=== PATIENT | female | born 1995 | race African-American/Black ===

== ENCOUNTER 2023-11-15 22:25 | Emergency (ER) | payer OTHER ==
[~2023-11-15] VITALS: Ht 157.5 cm; Wt 78.0 kg
[2023-11-15 22:33] VITALS: BP 146/95; PULSE 80; RESP 16; TEMP 96.7; O2SAT 100
[2023-11-15 23:01] LABS: APPEARANCE,URINE CLEAR (CLEAR); BILIRUBIN,URINE 1+ (NEGATIVE); BLOOD, URINE NEGATIVE (NEGATIVE); COLOR,URINE YELLOW (YELLOW); LEUKOCYTE ESTERASE ,URINE TRACE (NEGATIVE); NITRITE, URINE POSITIVE (NEGATIVE); PH,URINE 5.5 (5.0-9.0); PROTEIN,URINE 2+ (NEGATIVE); UGLUCOSE 1+ (NEGATIVE); UROBILINOGEN,URINE >=8.0 EU/dL (0.2 - 1)
[2023-11-15 23:08] LABS: ICTOTEST POSITIVE (NEGATIVE); RBC,URINE 0-5 /HPF (0-5)
[2023-11-15 23:09] LABS: BACTERIA,URINE 10-30 (MOD) /HPF (None Seen); MUCUS,URINE 1+ /LPF (None Seen); SQUAMOUS EPITHELIAL CELL,UR 0-3 (FEW) /LPF (0-3 (FEW))
[2023-11-15] MEDS ORDERED: PHEN-1877 PO (23:54)
[2023-11-15] MEDS ORDERED: ACET-10509 PO (23:54)
[2023-11-15] MEDS ORDERED: CEPH-588 PO (23:54)
[2023-11-15] MEDS ORDERED: ACETAMINOPHEN EXTRA STRENGTH 500 MG TAB ONE (23:59)
[2023-11-16] MEDS: ACETAMINOPHEN EXTRA STRENGTH 500 MG TAB PO ONE (00:01)
[2023-11-16 00:02] VITALS: BP 146/95; PULSE 80; RESP 16; TEMP 96.7; O2SAT 100
== END 2023-11-16 00:02 | disposition home or self-care (01) ==
LOC: MED 22:25
DX: N39.0 Urinary tract infection, site not specified (principal); J45.909 Unspecified asthma, uncomplicated; Z79.2 Long term (current) use of antibiotics; Z79.1 Long term (current) use of non-steroidal anti-inflammatories (NSAID); Z79.899 Other long term (current) drug therapy
CPT/HCPCS: 81001; 81025; 87086; 99283